=== PATIENT | female | born 1975 | race Caucasian/White ===

== ENCOUNTER 2017-03-19 14:07 | Emergency (ER) | payer BC, OTHER ==
[~2017-03-19] VITALS: Ht 167.6 cm; Wt 69.0 kg
[~2017-03-19 14:07] MED LIST: ATV/1 PO; BUDE180I INH; MULT-506 PO
[2017-03-19 14:11] VITALS: TEMP 36.5; Ht 167.6 cm; Wt 69.0 kg
--- NOTE | 2017-03-19 14:37 | EMERGENCY ROOM VISIT NOTE ---
History Report prepared by Jeri: Teofilo Mead Under the Supervision of: Dr. Charles Sher M.D. First contact with patient: 14:16 Chief Complaint: ANXIETY Stated Complaint: CONFUSION,EXHAUSTION,NAUSEA,ANXIETY,PANIC History of Present Illness The patient is a 41 year old female who presents to the Emergency Room for a mental health evaluation of worsening anxiety. The patient states that she has not been able to sleep well for about 8 days now due to crazy thoughts in her head. The patient states that she is a nervous wreck, exhausted, and she is having panic attacks. She states that she is anxious, and she just lost her job , and there have been deaths in the family. The patient denies any suicidal or homicidal ideations. The patient states that she does not take any medications, and she drinks some alcohol though not recently. She states that she has not been trying to hurt herself or overdosing. She states that she will get 2-4 hours of sleep per night in total because she wakes up panicked, though she is not hearing any voices. The patient's additionally states that the patient has been more confused recently. The additionally states that the patient was recently prescribed Paxil for her anxiety. Source of History: patient, spouse/significant other Onset: 8 days ago Position: other (global) Quality: other (anxiety) Timing: worsening Note: Associated symptoms: exhaustion, confusion Review of Systems See HPI for pertinent positives & negatives. A total of 10 systems reviewed and were otherwise negative. Past Medical & Surgical Surgical Problems: (1) [place] teeth extracted Old medical records were reviewed. Nurse's notes were reviewed and I agree with. Family History Diabetes mellitus FH: heart disease FH: lung disease FHx: cancer Hypertension Social History Smoking Status: Never Smoker Alcohol Use: occasionally Drug Use: none Marital Status: Housing Status: lives with family Current/Historical Medications Scheduled Paroxetine (Paroxetine HCl), 10 MG PO DAILY Allergies Coded Allergies: Cephalexin (Verified Allergy, Unknown, ., 11/02/15) Penicillins (Verified Allergy, Unknown, 11/02/15) Physical Exam Vital Signs Date Time Temp Pulse Resp B/P Pulse Ox O2 Delivery O2 Flow Rate FiO2 03/19/17 16:10 80 18 117/76 99 Room Air 03/19/17 14:11 36.5 76 18 144/90 99 Room Air Physical Exam General: Non-ill appearing middle aged female in no acute distress answering all questions appropriately. HEENT: Normal cephalic atraumatic. Pupils are equal round and reactive to light. Extraocular movements are intact. Oropharynx is pink with moist mucous membranes. No swelling of the mouth lips or tongue. Neck: Supple with a midline trachea. No meningeal signs or stiffness, no JVD or bruits. No Stridor. Chest: Clear to auscultation bilaterally. No wheezes or rhonchi. No increased work of breathing. Heart: regular rate and rhythm. Abdomen: Soft nontender, nondistended without rebound guarding or rigidity. Extremities: No cyanosis clubbing or edema. No calf tenderness or assymetry Spine/Back. Non tender to palpation. No CVA tenderness Skin: Good turgor without rashes. Neurologic exam: Cranial nerves two through 12 are intact. Motor and sensation are intact and symmetrical throughout. Psych: Complains of feeling anxious and not being able to sleep with some manic ideations according to her . No suicidal or homicidal ideations. Medical Decision & Procedures Laboratory Results 03/19/17 14:50 Red Blood Count 4.54, Mean Corpuscular Volume 85.9, Mean Corpuscular Hemoglobin 29.1, Mean Corpuscular Hemoglobin Concent 33.8, Mean Platelet Volume 10.9, Neutrophils (%) (Auto) 83.6, Lymphocytes (%) (Auto) 11.4, Monocytes (%) (Auto) 4.7, Eosinophils (%) (Auto) 0.0, Basophils (%) (Auto) 0.1, Neutrophils # (Auto) 12.11, Lymphocytes # (Auto) 1.66, Monocytes # (Auto) 0.68, Eosinophils # (Auto) 0.00, Basophils # (Auto) 0.02 03/19/17 14:50 Test 03/19/17 14:35 03/19/17 14:50 Urine Opiates Screen NEG (NEG) Urine Methadone, Qualitative NEG (NEG) Urine Barbiturates NEG (NEG) Urine Phencyclidine (PCP) Level NEG (NEG) Ur Amphetamine/Methamphetamine NEG (NEG) MDMA (Ecstasy) Screen NEG (NEG) Urine Benzodiazepines Screen NEG (NEG) Urine Cocaine Metabolite NEG (NEG) Urine Marijuana (THC) NEG (NEG) White Blood Count 14.50 K/uL (4.8-10.8) Red Blood Count 4.54 M/uL (4.2-5.4) Hemoglobin 13.2 g/dL (12.0-16.0) Hematocrit 39.0 % (37-47) Mean Corpuscular Volume 85.9 fL (80-100) Mean Corpuscular Hemoglobin 29.1 pg (25-34) Mean Corpuscular Hemoglobin Concent 33.8 g/dl (32-36) Platelet Count 239 K/uL (130-400) Mean Platelet Volume 10.9 fL (7.4-10.4) Neutrophils (%) (Auto) 83.6 % Lymphocytes (%) (Auto) 11.4 % Monocytes (%) (Auto) 4.7 % Eosinophils (%) (Auto) 0.0 % Basophils (%) (Auto) 0.1 % Neutrophils # (Auto) 12.11 K/uL (1.4-6.5) Lymphocytes # (Auto) 1.66 K/uL (1.2-3.4) Monocytes # (Auto) 0.68 K/uL (0.11-0.59) Eosinophils # (Auto) 0.00 K/uL (0-0.5) Basophils # (Auto) 0.02 K/uL (0-0.2) RDW Standard Deviation 41.2 fL (36.4-46.3) RDW Coefficient of Variation 13.1 % (11.5-14.5) Immature Granulocyte % (Auto) 0.2 % Immature Granulocyte # (Auto) 0.03 K/uL (0.00-0.02) Anion Gap 13.0 mmol/L (3-11) Est Creatinine Clear Calc Drug Dose 80.7 ml/min Estimated GFR () 98.0 Estimated GFR (Non- 84.5 BUN/Creatinine Ratio 6.1 (10-20) Calcium Level 8.9 mg/dl (8.5-10.1) Total Bilirubin 0.5 mg/dl (0.2-1) Direct Bilirubin 0.1 mg/dl (0-0.2) Aspartate Amino Transf (AST/SGOT) 12 U/L (15-37) Alanine Aminotransferase (ALT/SGPT) 17 U/L (12-78) Alkaline Phosphatase 61 U/L (45-117) Total Protein 7.8 gm/dl (6.4-8.2) Albumin 4.3 gm/dl (3.4-5.0) Lipase 84 U/L (73-393) Thyroid Stimulating Hormone (TSH) 0.800 uIu/ml (0.300-4.500) Salicylates Level < 1.7 mg/dl (2.8-20) Acetaminophen Level < 2 ug/ml (10-30) Ethyl Alcohol mg/dL < 3.0 mg/dl (0-3) Laboratory studies as stated above per my review. Medications Administered Medications (Trade) Dose Ordered Sig/Sharmila Route Start Time Stop Time Status Last Admin Dose Admin Hydroxyzine HCl (Vistaril Tab) 25 mg NOW STAT PO 03/19/17 17:47 03/19/17 17:48 DC 03/19/17 18:11 25 MG ECG Indication: other (anxiety) Rate (beats per minute): 86 Rhythm: normal sinus Findings: no acute ischemic change, no ectopy, other (Normal intervals) Comparison ECG Date: 11/12/15 Change: no significant change ED Course 1416: Past medical records reviewed. The patient was evaluated in room A6, and a complete history and physical examination were performed. 1620: I reevaluated the patient, and she is resting comfortably, and she has been medically cleared. The correctional casework specialist is working on a plan 1747: Vistaril Tab 25mg PO 1749: Upon reevaluation, the patient is doing well. I discussed the results and treatment plan with her. She verbalized agreement of the treatment plan. The patient was discharged home. Medical Decision Differentials include, but are not limited to; Manic depression, anxiety, electrolyte or metabolic abnormality, toxicological processes This patient comes in as described above. She was placed in room A6. She is here for treatment and evaluation of anxiety. She's been having manic-like behavior as well . She's not been sleeping for about a week. Her behaviors been somewhat erratic at times. She is cooperative and alert and oriented 3 here. She has a normal neurologic exam. Blood work was obtained for medical clearance as well as urinalysis. She is medically cleared and has nothing to suggest acute toxicologic process or metabolic or infectious process to explain her symptoms. She was further evaluated by Yvrose our psychiatric correctional casework specialist. I think the patient does have some manic behavior. She has been unwilling to take medications for this. She cannot get in the [facility] today and we have no beds here they did not want to go any further away as they have children at home. is going to take her home and try to get her just sleep tonight to see how much this is playing into the equation. She may ultimately need to be admitted and they will likely bring her back tomorrow to see if there may be beds available here and or at the [facility]. I did give her some Vistaril 25mg, # 2 pills, that she can use one every 6 hours if needed. She was warned that it could make her drowsy do not take before drinking, driving, working be careful getting up and down. She is not suicidal or homicidal. Iqra our psychiatric correctional casework specialist will follow-up with her tomorrow as well on the phone and help with placement if needed. Impression Primary Impression: Anxiety Additional Impression: Manic behavior Scribe Attestation The scribe's documentation has been prepared under my direction and personally reviewed by me in its entirety. I confirm that the note above accurately reflects all work, treatment, procedures, and medical decision making performed by me. Departure Information Dispostion Home / Self-Care Referrals Malathi Brambila M.D. (PCP) Forms HOME CARE DOCUMENTATION FORM, IMPORTANT VISIT INFORMATION Patient Instructions My [facility] Additional Instructions Rest. Drink plenty of fluids. For sleep, may try Vistaril 25 mg every 6 hours, and may make you drowsy do not take with any other medications that are sedating Return if: Worsening symptoms, thoughts of hurting himself or others, any new problems or concerns Follow-up with your doctor tomorrow for recheck or return here at any point if symptoms worsen Problem Qualifiers
[2017-03-19 14:58] LABS: BASO % 0.1 %; BASO ABS # 0.02 K/uL (0-0.2); COMPLETE YES; IG% 0.2 %; LYMPH % 11.4 %; LYMPH ABS # 1.66 K/uL (1.2-3.4); MEAN CELL VOLUME 85.9 fL (80-100); MEAN CORPUSCULAR HEMOGLOBIN 29.1 pg (25-34); MEAN CORPUSCULAR HGB CONC 33.8 g/dl (32-36); MEAN PLATELET VOLUME 10.9 fL (7.4-10.4); MONO % 4.7 %; NEUT % 83.6 %; PLATELET COUNT 239 K/uL (130-400); RED BLOOD COUNT 4.54 M/uL (4.2-5.4)
[2017-03-19 15:12] LABS: BENZODIAZEPINE, URINE NEG (NEG); COCAINE,URINE NEG (NEG); PHENCYCLIDINE, URINE NEG (NEG)
[2017-03-19] MEDS ORDERED: PXL/10 PO (15:15)
[2017-03-19 15:19] LABS: BUN/CREATININE RATIO 6.1 (10-20); CALCIUM 8.9 mg/dl (8.5-10.1); CREATININE 0.85 mg/dl (0.60-1.20); POTASSIUM 3.6 mmol/L (3.5-5.1)
[2017-03-19 15:30] LABS: THYROID STIMULATING HORMONE 0.8 uIu/ml (0.300-4.500)
[2017-03-19 15:45] LABS: ACETAMINOPHEN < 2 ug/ml (10-30)
[2017-03-19] MEDS ORDERED: hydrOXYzine HCL 25 MG TAB PO STA (17:47)
[2017-03-19 18:15] VITALS: BP 131/87; PULSE 73; O2SAT 100
== END 2017-03-19 18:15 | disposition home or self-care (01) ==
LOC: C.EDB 14:08 → C.EDA 18:15
DX: F41.9 Anxiety disorder, unspecified (principal); F30.9 Manic episode, unspecified; Z79.899 Other long term (current) drug therapy; Z88.0 Allergy status to penicillin; Z88.1 Allergy status to other antibiotic agents; Z83.3 Family history of diabetes mellitus; Z82.49 Family history of ischemic heart disease and other diseases of the circulatory system; Z80.9 Family history of malignant neoplasm, unspecified

== ENCOUNTER 2017-03-20 12:47 | Inpatient (IN) | payer BC ==
[~2017-03-20] VITALS: Ht 167.6 cm; Wt 68.0 kg
[~2017-03-20 12:47] MED LIST changes: -ATV/1 PO; -BUDE180I INH; -MULT-506 PO; +PXL/10 PO
[2017-03-20 14:17] LABS: URINE APPEARANCE CLEAR (CLEAR); URINE BILIRUBIN NEG (NEG); URINE COLOR YELLOW; URINE NITRITE NEG (NEG); URINE PH 6.5 (4.5-7.5); URINE SPECIFIC GRAVITY 1.012 (1.000-1.030); UROBILINOGEN NEG (NEG); ZZUR CULT IF INDIC CLEAN CATCH NO
[2017-03-20 14:20] LABS: PREG INTERNAL NEGATIVE QC NEG CLEAR BACKGROUND; PREG INTERNAL POSITIVE QC POS CONTROL LINE
[2017-03-20 14:25] LABS: MANUAL MICROSCOPIC REQUIRED? NO; REVIEW REQ? NO
--- NOTE | 2017-03-20 14:47 | EMERGENCY ROOM VISIT NOTE ---
History Report prepared by Jeri: Karey Aguayo Under the Supervision of: Dr. Yoav Flanagan D.O. First contact with patient: 13:52 Chief Complaint: ANXIETY Stated Complaint: ANXIETY History of Present Illness The patient is a 41 year old female who presents to the Emergency Room with complaints of persistent anxiety starting 1 week ago. The patient was seen in the ED yesterday for anxiety due to losing her job and deaths in the family. She denied any SI or HI yesterday. She denied trying to hurt herself or overdosing. She has been getting 2-4 hours of sleep a night. She denied any auditory or visual hallucinations. She was recently started on Paxil for anxiety and was given Vistaril yesterday while she was here. An attempt was made to get her into the [facility] which was unsuccessful. There were no beds here and she did not want to go any further away because of her kids. The plan was for her to come back today for a bed search. Today she reports that she has been confused and having trouble remembering things. She states she is easily overwhelmed and having racing thoughts. She currently denies any SI or HI. She was able to get 6 hours of sleep last night with the Vistaril. Her notes that she is not herself. She is often found staring into space. She has been stopping mid conversation or going from topic to topic. She has been accusing her family of trying to prank her. She admits to feeling hypersexual. She has a history of anxiety. She is still agreeable to inpatient care. She denies any other medical problems. Pt denies headache, change in vision, fevers , chest pain, shortness of breath, nausea, vomiting, diarrhea, pain with urination, weakness, and numbness. Source of History: patient, family Onset: 1 week ago Position: other (mental health) Quality: other (anxiety) Timing: other (persistent) Associated Symptoms: No SOB, No chest pain, No diarrhea, No fevers, No headache, No nausea, No numbness, No urinary symptoms, No vomiting, No weakness Note: Pt denies change in vision. Review of Systems See HPI for pertinent positives & negatives. A total of 10 systems reviewed and were otherwise negative. Past Medical & Surgical Medical Problems: (1) Psychosis Surgical Problems: (1) [place] teeth extracted Family History Diabetes mellitus FH: heart disease FH: lung disease FHx: cancer Hypertension Social History Smoking Status: Never Smoker Alcohol Use: occasionally Drug Use: none Marital Status: Housing Status: lives with family Allergies Coded Allergies: Cephalexin (Verified Allergy, Unknown, ., 11/02/15) Penicillins (Verified Allergy, Unknown, 11/02/15) Physical Exam Vital Signs Date Time Temp Pulse Resp B/P Pulse Ox O2 Delivery O2 Flow Rate FiO2 03/20/17 14:53 72 18 110/72 97 Room Air 03/20/17 12:57 36.6 75 18 140/89 97 Room Air Physical Exam GENERAL: sitting up in bed, disheveled, no acute distress, non-toxic EYE EXAM: normal conjunctiva, PERRL and EOM's intact OROPHARYNX: no exudate, no erythema, lips, buccal mucosa, and tongue normal and mucous membranes are moist NECK: supple, no nuchal rigidity, no adenopathy, non-tender LUNGS: Clear to auscultation. Normal chest wall mechanics HEART: no murmurs, S1 normal and S2 normal ABDOMEN: abdomen soft, non-tender, normo-active bowel sounds, no masses, no rebound or guarding. BACK: Back is symmetrical on inspection and there is no deformity, no midline tenderness, no CVA tenderness. SKIN: no rashes and no bruising UPPER EXTREMITIES: upper extremities are grossly normal. LOWER EXTREMITIES: No pitting edema. NEURO EXAM: Normal sensorium, cranial nerves II-XII intact, normal speech, no weakness of arms, no weakness of legs. No drift. Finger to nose intact. Gross sensation intact. PSYCH: Denies SI or HI, denies auditory or visual hallucination, admits to depression and feeling hypersexual. Medical Decision & Procedures Laboratory Results 03/20/17 14:40 Red Blood Count 4.48, Mean Corpuscular Volume 87.3, Mean Corpuscular Hemoglobin 28.6, Mean Corpuscular Hemoglobin Concent 32.7, Mean Platelet Volume 11.0, Neutrophils (%) (Auto) 76.6, Lymphocytes (%) (Auto) 16.6, Monocytes (%) (Auto) 6.3, Eosinophils (%) (Auto) 0.1, Basophils (%) (Auto) 0.2, Neutrophils # (Auto) 7.94, Lymphocytes # (Auto) 1.72, Monocytes # (Auto) 0.65, Eosinophils # (Auto) 0.01, Basophils # (Auto) 0.02 03/20/17 14:40 Test 03/20/17 13:24 03/20/17 14:40 Urine Color YELLOW Urine Appearance CLEAR (CLEAR) Urine pH 6.5 (4.5-7.5) Urine Specific Raymond 1.012 (1.000-1.030) Urine Protein NEG (NEG) Urine Glucose (UA) NEG (NEG) Urine Ketones 1+ (NEG) Urine Occult Blood NEG (NEG) Urine Nitrite NEG (NEG) Urine Bilirubin NEG (NEG) Urine Urobilinogen NEG (NEG) Urine Leukocyte Esterase NEG (NEG) Urine Test NEG (NEG) Urine Opiates Screen NEG (NEG) Urine Methadone, Qualitative NEG (NEG) Urine Barbiturates NEG (NEG) Urine Phencyclidine (PCP) Level NEG (NEG) Ur Amphetamine/Methamphetamine NEG (NEG) MDMA (Ecstasy) Screen NEG (NEG) Urine Benzodiazepines Screen NEG (NEG) Urine Cocaine Metabolite NEG (NEG) Urine Marijuana (THC) NEG (NEG) White Blood Count 10.36 K/uL (4.8-10.8) Red Blood Count 4.48 M/uL (4.2-5.4) Hemoglobin 12.8 g/dL (12.0-16.0) Hematocrit 39.1 % (37-47) Mean Corpuscular Volume 87.3 fL (80-100) Mean Corpuscular Hemoglobin 28.6 pg (25-34) Mean Corpuscular Hemoglobin Concent 32.7 g/dl (32-36) Platelet Count 212 K/uL (130-400) Mean Platelet Volume 11.0 fL (7.4-10.4) Neutrophils (%) (Auto) 76.6 % Lymphocytes (%) (Auto) 16.6 % Monocytes (%) (Auto) 6.3 % Eosinophils (%) (Auto) 0.1 % Basophils (%) (Auto) 0.2 % Neutrophils # (Auto) 7.94 K/uL (1.4-6.5) Lymphocytes # (Auto) 1.72 K/uL (1.2-3.4) Monocytes # (Auto) 0.65 K/uL (0.11-0.59) Eosinophils # (Auto) 0.01 K/uL (0-0.5) Basophils # (Auto) 0.02 K/uL (0-0.2) RDW Standard Deviation 43.0 fL (36.4-46.3) RDW Coefficient of Variation 13.4 % (11.5-14.5) Immature Granulocyte % (Auto) 0.2 % Immature Granulocyte # (Auto) 0.02 K/uL (0.00-0.02) Anion Gap 7.0 mmol/L (3-11) Est Creatinine Clear Calc Drug Dose 80.7 ml/min Estimated GFR () 98.0 Estimated GFR (Non- 84.5 BUN/Creatinine Ratio 8.1 (10-20) Calcium Level 8.9 mg/dl (8.5-10.1) Total Bilirubin 0.4 mg/dl (0.2-1) Direct Bilirubin 0.1 mg/dl (0-0.2) Aspartate Amino Transf (AST/SGOT) 15 U/L (15-37) Alanine Aminotransferase (ALT/SGPT) 17 U/L (12-78) Alkaline Phosphatase 53 U/L (45-117) Total Protein 7.3 gm/dl (6.4-8.2) Albumin 4.0 gm/dl (3.4-5.0) Salicylates Level < 1.7 mg/dl (2.8-20) Acetaminophen Level < 2 ug/ml (10-30) Ethyl Alcohol mg/dL < 3.0 mg/dl (0-3) Laboratory results per my review. ED Course ED COURSE: Vital signs were reviewed and showed normal vitals. The patients medical record was reviewed The above diagnostic studies were performed and reviewed. ED treatments and interventions as stated above. 1401: The patient was evaluated in room A7. A complete history and physical examination was performed. 1625: Upon reevaluation, the patient is resting comfortably.I discussed my findings with the patient and she understands and agrees with the treatment plan. Based on the patients age, coexisting illnesses, exam and lab findings the decision to treat as an inpatient was made. The patient remained stable while under my care. The patient will be evaluated for further management. The patient has been accepted to [address] [place] [address]. Medical Decision Differential diagnoses includes but is not limited to mood disorder, infection, hypoglycemia, electrolyte abnormalities, cardiac sources, intracerebral event, toxicologic, neurologic, as well as others were entertained. Patient is a 41-year-old female who presents to the ER who appears to be manic with racing thoughts, having difficulty sleeping and hypersexual. She was brought in by her yesterday and they had no beds at [facility] or [facility] and consequently requested to be discharged. She was given some Vistaril and was able to sleep but her symptoms are still present. They have all been present for the past week. She has not been able to hold her job and consequently was fired a week ago. CBC along with BP, LFTs, bilirubin are all negative. Tox was negative. TSH was negative yesterday. Alcohol negative today. 3 S. was consulted for further evaluation and patient was admitted. Impression Primary Impression: Mood disorder of manic type Scribe Attestation The scribe's documentation has been prepared under my direction and personally reviewed by me in its entirety. I confirm that the note above accurately reflects all work, treatment, procedures, and medical decision making performed by me. Departure Information Dispostion Mental Health Acute Care Referrals Malathi Brambila M.D. (PCP) Patient Instructions My [facility]
[2017-03-20 14:55] LABS: BASO % 0.2 %; BASO ABS # 0.02 K/uL (0-0.2); COMPLETE YES; EOS % 0.1 %; HEMATOCRIT 39.1 % (37-47); IG% 0.2 %; LYMPH % 16.6 %; LYMPH ABS # 1.72 K/uL (1.2-3.4); MEAN CELL VOLUME 87.3 fL (80-100); MEAN CORPUSCULAR HEMOGLOBIN 28.6 pg (25-34); MEAN CORPUSCULAR HGB CONC 32.7 g/dl (32-36); MONO % 6.3 %; NEUT % 76.6 %; PLATELET COUNT 212 K/uL (130-400); RED BLOOD COUNT 4.48 M/uL (4.2-5.4); WHITE BLOOD COUNT 10.36 K/uL (4.8-10.8)
[2017-03-20 15:12] LABS: CALCIUM 8.9 mg/dl (8.5-10.1)
[2017-03-20 15:17] LABS: BUN/CREATININE RATIO 8.1 (10-20); CREATININE 0.85 mg/dl (0.60-1.20); POTASSIUM 3.9 mmol/L (3.5-5.1)
[2017-03-20 15:19] LABS: BENZODIAZEPINE, URINE NEG (NEG); COCAINE,URINE NEG (NEG); PHENCYCLIDINE, URINE NEG (NEG)
[2017-03-20 15:30] LABS: ACETAMINOPHEN < 2 ug/ml (10-30)
[2017-03-20] MEDS ORDERED: hydrOXYzine HCL 25 MG TAB PO PRN (16:15)
[2017-03-20] MEDS ORDERED: HALOPERIDOL 5 MG TAB PO PRN (16:15)
[2017-03-20] MEDS ORDERED: MAGNESIUM HYDROXIDE SUSP 30 ML UDC PO PRN (16:15)
[2017-03-20] MEDS ORDERED: SODIUM CHLORIDE 0.65% NA SOLN 45 ML (OCEAN) PRN (16:15)
[2017-03-20] MEDS ORDERED: ALUMINUM/MAGNESIUM SUSP 30 ML UDC PO PRN (16:15)
[2017-03-20] MEDS ORDERED: BISMUTH SUBSALICYLATE PER ML OMNICELL CHARGE PO PRN (16:15)
[2017-03-20] MEDS ORDERED: ACETAMINOPHEN 325 MG TAB PO PRN (16:15)
[2017-03-20 16:41] VITALS: O2SAT 97
[2017-03-20 18:53] VITALS: BP 126/83; PULSE 77; TEMP 36.6; Ht 167.6 cm; Wt 68.0 kg
[2017-03-21] MEDS: hydrOXYzine HCL 25 MG TAB PO PRN ×2 (01:52→18:47)
[2017-03-21 07:04] VITALS: BP_SYST 130; BP_SYST 133; BP_DIAS 83; PULSE 77; PULSE 83; TEMP 36.8
[2017-03-21] MEDS ORDERED: RISPERIDONE ODT 0.5MG PO PRN (10:15)
--- NOTE | 2017-03-21 10:45 | Psychiatric History & Physical ---
History Date of Service March 21, 2017. Identifying Data Nicolasa Pedroza is a 41-year-old female who presented to the ER for the second day in a row with complaints of anxiety, confused thinking and paranoia. She was admitted on a 201 voluntary commitment but immediately submitted her 72 hour notice to withdraw from treatment. Chief Complaint "I've had a lot of stressful events". History of Present Illness Nicolasa Pedroza is a 41-year-old woman with no past psych history other than having had some counseling, who reports that over the course of the last week and a half or more, she is having difficulty with her thinking and had what she describes as a "breakdown. He talks about having multiple stressors including the fact that she lost her job at the [employer] sometime in January because she is not doing a good job. She has also had several deaths in the family. She indicates that she is having "trouble with my " and tells a somewhat vague story about having been flirtatious with a man through texts in the past and having emotional affairs but not physical affairs and that somehow these issues resurfaced recently. Medically, she reports that she has a basal cell carcinoma on her nose and is scheduled for removal on March 29. She is also having a lot of fearful thoughts that she is dying but says she has received no information that she has a disease process going on. She admits that she takes on other people's problems and takes them to extremes. She indicates, for example, that she has a cousin who is a drug addict and has recently then been thinking that maybe she is a drug addict or that maybe her daughter is a drug addict. This leads her to thoughts that she might have multiple personality disorders because she is unable to control her thinking. She also says that her sleep has been impaired and based on these things was brought to the emergency room 2 days ago by her . At that time, she had agreed to go to [facility], there were no beds available and so they sent her home with Vistaril in hopes that she would sleep and get some control of her symptoms. She re-presented yesterday acknowledging that she needed inpatient treatment. She agreed to a voluntary admission but quickly signed her 72 hour notice. She was paranoid at one point that her and the analog design engineer drawing her blood were working together to have her scanned for specific substances. Today the patient says that her mood has been "somber" and finds that she does not have the affect she once had. She denies ever having had suicidal thoughts. She reports impaired sleep going on for the last week and a half, able to follow sleep but very quickly waking up and then getting only 4-6 hours of broken sleep per night where she would normally get 8 hours. Her appetite is been down and she thinks she may have lost a few pounds. Her energy is down but in the same breath says that she has been having more goals and activation, talking about looking for a job, exercising and wanting to take a class. She reports poor focus and concentration. She indicates that she is unable to finish one thought at a time and feels like her thoughts are bombarding her. She denies any clear auditory or visual hallucinations, however does say that things on the television seemed familiar to her, related to her, and references [place]. When asked about thought broadcasting she initially says yes but then is unable to clearly give an example or answer the question. She denies problems with anger. She says that she has been highly anxious and has been having panic attacks, usually triggered by fears of or fears of losing another loved one. Her grandmother recently . She denies self-injurious behaviors. She denies symptoms of OCD. She denies discrete episodes of euphoric mood, sleeplessness or pleasure seeking behaviors that would be congruent with a bipolar disorder. Past Psychiatric History Access to a Gun: No Past Medical/Surgical History History of Concussion/Seizure: No (1) History of rheumatic fever Allergies Allergies: Coded Allergies: Cephalexin (Verified Allergy, Unknown, ., 11/02/15) Penicillins (Verified Allergy, Unknown, 11/02/15) Family History Diabetes mellitus FH: heart disease FH: lung disease FHx: cancer Hypertension History of Suicide: No History of Substance Abuse: Yes (cousin) Psychiatric History: Yes (mother, brother, sister with anxiety) Alcohol Use Alcohol Use In Past 12 Months: Yes AUDIT Total Score: 0 Drinks alcohol occasionally, usually one or 2 glasses of wine 2-3 days per week Smoking Use Smoking Status: Never Smoker Substance History Denies the use of illegal substances now or at any time in the past Personal History Lives in: [employer] with her and twin son and daughter Childhood: Grew up locally, graduated from [employer] Education: graduated college (bachelors degree in human development and family services) Work History: 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 Previously worked for [employer] Relationship History: (17 years) Children: twin 13-year-old son and daughter Spiritual Affiliation: Caodaism Legal History: none Psychological Trauma History: Other (denies) Review of Systems Constitutional: other (insomnia) Eyes: denies: as stated in HPI, blurred vision, discharge, double vision, eye pain, itching, no symptoms, other, photophobia, redness, tearing, visual changes ENT: reports: other (dry mouth making it difficult to swallow at times) Cardiovascular: denies: chest pain, chest pressure, chest tightness, diaphoresis, no symptoms reported, other, palpitations, see HPI, syncope Respiratory: denies: JUAN, PND, cough, cyanosis, no symptoms reported, orthopnea , other, see HPI, short of breath, sputum production, stridor, wheezing Gastrointestinal: denies no symptoms reported, denies see HPI, denies abdominal pain, denies constipation, denies diarrhea, denies nausea, denies vomiting, denies other Genitourinary - Female: denies: amenorrhea, dysmenorrhea, menorrhagia, metrorrhagia, no symptoms, other, , rash, see HPI, vaginal bleeding, vaginal discharge, vaginal itching, vulvadynia Musculoskeletal: denies no symptoms reported, denies see HPI, denies back pain , denies gout, denies joint pain, denies joint swelling, denies muscle pain, denies muscle stiffness, denies neck pain, denies other Integumentary: denies no symptoms reported, denies see HPI, denies change in color, denies change in hair/nails, denies dryness, denies lesions, denies lumps , denies rash, denies other Neurologic: denies: dizziness, focal weakness, general weakness, headache, lethargy, memory loss, no symptoms, numbness, other, paresthesias, pre-existing deficit, see HPI, seizure, tics, tingling, tremors, vertigo Endocrine: denies: as stated in HPI, cold intolerance, goiter, hair changes, heat intolerance, no symptoms, other, polydipsia, polyuria, skin changes Hematologic / Lymphatic: denies: abnormal clotting, adenopathy, anemia, as stated in HPI, easy bleeding, easy bruising, gums bleeding, no symptoms, other, petechiae Examination Physical Examination Exam performed by Dr. Sher has been reviewed and accepted as medical clearance for our unit Vital Signs Vital Signs Past 12 Hours Date Time Temp Pulse Resp B/P Pulse Ox O2 Delivery O2 Flow Rate FiO2 03/21/17 07:04 36.8 77 16 133/83 83 130/83 Laboratory Results Last 24 Hours Test 03/20/17 13:24 03/20/17 14:40 Urine Color YELLOW Urine Appearance CLEAR Urine pH 6.5 Urine Specific [place] 1.012 Urine Protein NEG Urine Glucose (UA) NEG Urine Ketones 1+ Urine Occult Blood NEG Urine Nitrite NEG Urine Bilirubin NEG Urine Urobilinogen NEG Urine Leukocyte Esterase NEG Urine Test NEG Urine Opiates Screen NEG Urine Methadone, Qualitative NEG Urine Barbiturates NEG Urine Phencyclidine (PCP) Level NEG Ur Amphetamine/Methamphetamine NEG MDMA (Ecstasy) Screen NEG Urine Benzodiazepines Screen NEG Urine Cocaine Metabolite NEG Urine Marijuana (THC) NEG White Blood Count 10.36 K/uL Red Blood Count 4.48 M/uL Hemoglobin 12.8 g/dL Hematocrit 39.1 % Mean Corpuscular Volume 87.3 fL Mean Corpuscular Hemoglobin 28.6 pg Mean Corpuscular Hemoglobin Concent 32.7 g/dl Platelet Count 212 K/uL Mean Platelet Volume 11.0 fL Neutrophils (%) (Auto) 76.6 % Lymphocytes (%) (Auto) 16.6 % Monocytes (%) (Auto) 6.3 % Eosinophils (%) (Auto) 0.1 % Basophils (%) (Auto) 0.2 % Neutrophils # (Auto) 7.94 K/uL Lymphocytes # (Auto) 1.72 K/uL Monocytes # (Auto) 0.65 K/uL Eosinophils # (Auto) 0.01 K/uL Basophils # (Auto) 0.02 K/uL RDW Standard Deviation 43.0 fL RDW Coefficient of Variation 13.4 % Immature Granulocyte % (Auto) 0.2 % Immature Granulocyte # (Auto) 0.02 K/uL Sodium Level 138 mmol/L Potassium Level 3.9 mmol/L Chloride Level 103 mmol/L Carbon Dioxide Level 28 mmol/L Anion Gap 7.0 mmol/L Blood Urea Nitrogen 7 mg/dl Creatinine 0.85 mg/dl Est Creatinine Clear Calc Drug Dose 80.7 ml/min Estimated GFR () 98.0 Estimated GFR (Non- 84.5 BUN/Creatinine Ratio 8.1 Random Glucose 87 mg/dl Calcium Level 8.9 mg/dl Total Bilirubin 0.4 mg/dl Direct Bilirubin 0.1 mg/dl Aspartate Amino Transf (AST/SGOT) 15 U/L Alanine Aminotransferase (ALT/SGPT) 17 U/L Alkaline Phosphatase 53 U/L Total Protein 7.3 gm/dl Albumin 4.0 gm/dl Salicylates Level < 1.7 mg/dl Acetaminophen Level < 2 ug/ml Ethyl Alcohol mg/dL < 3.0 mg/dl Mental Examination During interview pt is: alert and oriented, guarded Appearance: appropriately dressed, appropriately groomed Eye contact is: good Motor behavior is: steady gait & station, no abnormal motor movements Speech: normal in rate, rhythm & volume Affect: flat, anxious Mood is: anxious, other ("somber") Thought process: other (vague and at times disconnected) Thought content: paranoid (that others are conspiratorial) Suicidal thought are: denied Homicidal thoughts are: denied Hallucinations: denies auditory, denies visual Cognition: memory grossly intact, attention grossly intact, language grossly intact Intelligence estimated to be: average Insight: impaired Judgement: impaired Impression / Recommendations Impression 41-year-old woman who is admitted to our unit voluntarily with anxiety, delusions of paranoia. She reports this is been coming on for a week and a half although stressors date back to January. She presented to the ER 2 days in a row. Unfortunately, after arriving on the unit, her paranoia escalated and she submitted a 72 hour notice to withdraw from treatment. Today she remains paranoid and I have discussed a treatment plan that includes using Risperdal to treat her thought distortions. She is unable to focus on this clearly, saying she doesn't want to get addicted and then saying she doesn't think that she needs those medicines. We have an extensive conversation about half-lives and the purpose and mechanism of medications. I will order the medications and have the nurses take to her. If she refuses the medications, we will need to meet with her to see if he has any information that would make her committable as she has submitted a 72 hour notice as well. I will also order Risperdal 0.5 mg every 4 hours when necessary in the event she chooses to take something for her distorted thoughts. She will need psychiatric aftercare. At this time she requires inpatient mental health treatment due to the severity of her paranoia, and apparent inability to function or distinguish reality as an outpatient. Inventory Assets Strengths: Good support from family, love of her children Risk Factors Assessment : Yes /single/: No Higher / Fall in social status: No Access to guns: No Health problems: No Mental Health Diagnoses: No Substance use disorders: No Previous attempt: No Previous psychiatric stay: No Hopelessness: No Smoker: No Protective Factors Assessment Zoroastrian beliefs: Yes : Yes Responsible for young children: Yes Employed: No Stable relationships: Yes Supportive family: Yes Recommendations (1) Unspecified psychosis 03/21 -Start Risperdal 1 mg twice a day and 0.5 mg every 4 hours when necessary psychosis. -Obtain supplemental information from including any potential 302 criteria -The patient will need psychiatric aftercare -The patient has submitted a 72 hour notice. We will continue to gather information toward the need for further inpatient care -Encourage attendance in group and individual counseling -Every 15 minute checks for safety -Reality orientation -The patient is asking for copies of all of her releases and her medical records. This is not deemed to be appropriate at this time -When necessary Vistaril for anxiety and sleep Has been reviewed with Dr. Clau Manley CPT Code Initial Hospital Care: 61707
[2017-03-21] MEDS ORDERED: RISPERIDONE ODT 1MG PO ONE (11:00)
[2017-03-21] MEDS: RISPERIDONE ODT 1MG PO SCH ×2 (13:10→21:11)
[2017-03-21] MEDS: LORAZEPAM 1 MG TAB PO PRN (23:02)
[2017-03-22] MEDS: RISPERIDONE ODT 1MG PO SCH (06:40)
[2017-03-22 07:06] VITALS: BP_SYST 120; BP_SYST 129; BP_DIAS 76; BP_DIAS 87; PULSE 134; PULSE 142; TEMP 36.5
[2017-03-22] MEDS: LORAZEPAM 1 MG TAB PO PRN (07:21)
[2017-03-22] MEDS ORDERED: LORAZEPAM 0.5 MG TAB PO PRN (10:45)
--- NOTE | 2017-03-22 11:01 | Psychiatric Progress Notes ---
Progress Note Date of Service March 22, 2017. Interval History 41 yo female admitted voluntarily on 03/21 with paranoia and distorted thoughts, occurring in the context of having lost her job, newly diagnoses BCC on her nose and some marital distress. Chief Complaint "I'm tired. ". Subjective Patient was seen & assessed interval progress reviewed with Treatment Team. The patient is quite tired today and was awakened from sleep for the interview. She admits that she was hesitant to take the meds but with 's encouragement, she has taken all doses. She also has taken 2 doses of ativan for sleep and anxiety. She says that she cannot tell at this time whether it has changed her thinking in any way because she is too tired. She does ask if the information I put in the computer is accessible by everyone (meaning staff) as if paranoid. I discuss with her the plan to readjust her meds to reduce daytime sedation, and also encouraged her to use the prn rispderdal as opposed to ativan if she is distressed. She denies other side effects to meds. Pulse taken during the interview, 84 irregular Review of Systems Constitutional: + fatigue ENT: No dental problems, No hearing loss, No nasal symptoms, No problem reported, No sore throat, No tinnitus, No trouble swallowing, No unusual epistaxis Respiratory: No cough, No dyspnea at rest, No dyspnea on exertion, No hemoptysis, No problem reported, No shortness of breath, No sputum, No wheezing Cardiovascular: No PND, No chest pain, No claudication, No edema, No orthopnea , No palpitations, No problem reported Abdomen: No GI bleeding, No constipation, No diarrhea, No nausea, No pain, No problem reported, No vomiting Musculoskeletal: No calf pain, No joint pain, No muscle pain, No problem reported, No swelling Neurologic: No balance problems, No memory loss, No numbness/tingling, No paralysis, No problem reported, No vertigo, No weakness Psychiatric: + problem reported (paranoid ideation) Integumentary: No bleeding, No color change, No itch, No new/changing skin lesions, No problem reported, No rash Sleep Information Total Hours of Sleep: 8.50 Meal Information Percent of Breakfast Consumed: 100 Percent of Dinner Consumed: 75 Mental Status Exam During interview pt is: cooperative (but tired and struggling to stay awake), guarded Appearance: appropriately dressed, appropriately groomed Eye contact is: good Motor behavior is: steady gait & station, no abnormal motor movements Speech: normal in rate, rhythm & volume Affect: flat (tired), anxious Mood is: anxious Thought process: goal directed (but tired and unable to reflect her thoughts) Thought content: paranoid (that others are conspiratorial) Suicidal thought are: denied Homicidal thoughts are: denied Hallucinations: denies auditory, denies visual Cognition: memory grossly intact, attention grossly intact, language grossly intact Intelligence estimated to be: average Insight: impaired Judgement: impaired Impression Appears sedated on meds today, but taking meds as prescribed. Is unable to to fatigue, to assess the impact of meds to her thinking, but asked what sounded like a paranoid question during the interview about the computers. Will adjust risperdal to 0.5 mg. AM and 1.5 mg HS and cut prn ativan in half. Will encourage nursing to utilize risperdal prn rather than ativan since we are targeting psychosis. 72 hr notice remains, and will on 03/23 at 1750. Social service will contact today re: whether he has any evidence for a 302, as she will not likely meet criteria based on our information. Will continue to encourage to revoke, and remain for further treatment. Plan (1) Unspecified psychosis 03/21 -Start Risperdal 1 mg twice a day and 0.5 mg every 4 hours when necessary psychosis. -Obtain supplemental information from including any potential 302 criteria -The patient will need psychiatric aftercare -The patient has submitted a 72 hour notice. We will continue to gather information toward the need for further inpatient care -Encourage attendance in group and individual counseling -Every 15 minute checks for safety -Reality orientation -The patient is asking for copies of all of her releases and her medical records. This is not deemed to be appropriate at this time -When necessary Vistaril for anxiety and sleep 03/22 - Change risperdal to 0.5 mg. AM and 1.5 mg HS due to daytime sedation - Family meeting held with yesterday - Reduce prn ativan to 0.5 mg. and encourage staff to use risperdal prn first - Continue to gather information toward the need for further inpatient treatment. Discharge / Aftercare Planning Primary Care Physician: Name: Mayra Carroll Therapist: Name: clover Customer Experience Strategist: Name: clover Visit Code E&M Code: 52859 Inventory Assets Strengths: Good support from family, love of her children Risk Factors Assessment : Yes /single/: No Higher / Fall in social status: No Health problems: No Mental Health Diagnoses: No Substance use disorders: No Previous attempt: No Previous psychiatric stay: No Hopelessness: No Smoker: No Protective Factors Assessment Baptism beliefs: Yes : Yes Responsible for young children: Yes Employed: No Stable relationships: Yes Supportive family: Yes Data Vital Signs Last 24 Hrs: Date Time Temp Pulse Resp B/P Pulse Ox O2 Delivery O2 Flow Rate FiO2 03/22/17 07:06 36.5 142 16 129/76 134 120/87 Meds Administered Last 24 Hrs: Meds Administered (Past 24Hrs) Medications (Trade) Dose Ordered Sig/Sharmila Route Start Time Stop Time Status Last Admin Dose Admin Hydroxyzine HCl (Vistaril Tab) 50 mg HSZ PRN PO 03/20/17 16:15 04/19/17 16:14 03/21/17 21:11 50 MG Hydroxyzine HCl (Vistaril Tab) 25 mg Q4H PRN PO 03/20/17 16:15 04/19/17 16:14 03/21/17 18:47 25 MG Risperidone (Risperdal M Tab) 1 mg BID PO 03/21/17 22:00 04/20/17 21:59 03/22/17 06:40 1 MG Lorazepam (Ativan Tab) 1 mg Q4H PRN PO 03/21/17 10:15 04/20/17 10:14 03/22/17 07:21 1 MG Lab Results Last 24 Hrs: 03/20/17 14:40 Red Blood Count 4.48, Mean Corpuscular Volume 87.3, Mean Corpuscular Hemoglobin 28.6, Mean Corpuscular Hemoglobin Concent 32.7, Mean Platelet Volume 11.0, Neutrophils (%) (Auto) 76.6, Lymphocytes (%) (Auto) 16.6, Monocytes (%) (Auto) 6.3, Eosinophils (%) (Auto) 0.1, Basophils (%) (Auto) 0.2, Neutrophils # (Auto) 7.94, Lymphocytes # (Auto) 1.72, Monocytes # (Auto) 0.65, Eosinophils # (Auto) 0.01, Basophils # (Auto) 0.02 03/20/17 14:40 Test 03/20/17 13:24 03/20/17 14:40 Urine Color YELLOW Urine Appearance CLEAR (CLEAR) Urine pH 6.5 (4.5-7.5) Urine Specific [place] 1.012 (1.000-1.030) Urine Protein NEG (NEG) Urine Glucose (UA) NEG (NEG) Urine Ketones 1+ (NEG) Urine Occult Blood NEG (NEG) Urine Nitrite NEG (NEG) Urine Bilirubin NEG (NEG) Urine Urobilinogen NEG (NEG) Urine Leukocyte Esterase NEG (NEG) Urine Test NEG (NEG) Urine Opiates Screen NEG (NEG) Urine Methadone, Qualitative NEG (NEG) Urine Barbiturates NEG (NEG) Urine Phencyclidine (PCP) Level NEG (NEG) Ur Amphetamine/Methamphetamine NEG (NEG) MDMA (Ecstasy) Screen NEG (NEG) Urine Benzodiazepines Screen NEG (NEG) Urine Cocaine Metabolite NEG (NEG) Urine Marijuana (THC) NEG (NEG) White Blood Count 10.36 K/uL (4.8-10.8) Red Blood Count 4.48 M/uL (4.2-5.4) Hemoglobin 12.8 g/dL (12.0-16.0) Hematocrit 39.1 % (37-47) Mean Corpuscular Volume 87.3 fL (80-100) Mean Corpuscular Hemoglobin 28.6 pg (25-34) Mean Corpuscular Hemoglobin Concent 32.7 g/dl (32-36) Platelet Count 212 K/uL (130-400) Mean Platelet Volume 11.0 fL (7.4-10.4) Neutrophils (%) (Auto) 76.6 % Lymphocytes (%) (Auto) 16.6 % Monocytes (%) (Auto) 6.3 % Eosinophils (%) (Auto) 0.1 % Basophils (%) (Auto) 0.2 % Neutrophils # (Auto) 7.94 K/uL (1.4-6.5) Lymphocytes # (Auto) 1.72 K/uL (1.2-3.4) Monocytes # (Auto) 0.65 K/uL (0.11-0.59) Eosinophils # (Auto) 0.01 K/uL (0-0.5) Basophils # (Auto) 0.02 K/uL (0-0.2) RDW Standard Deviation 43.0 fL (36.4-46.3) RDW Coefficient of Variation 13.4 % (11.5-14.5) Immature Granulocyte % (Auto) 0.2 % Immature Granulocyte # (Auto) 0.02 K/uL (0.00-0.02) Anion Gap 7.0 mmol/L (3-11) Est Creatinine Clear Calc Drug Dose 80.7 ml/min Estimated GFR () 98.0 Estimated GFR (Non- 84.5 BUN/Creatinine Ratio 8.1 (10-20) Calcium Level 8.9 mg/dl (8.5-10.1) Total Bilirubin 0.4 mg/dl (0.2-1) Direct Bilirubin 0.1 mg/dl (0-0.2) Aspartate Amino Transf (AST/SGOT) 15 U/L (15-37) Alanine Aminotransferase (ALT/SGPT) 17 U/L (12-78) Alkaline Phosphatase 53 U/L (45-117) Total Protein 7.3 gm/dl (6.4-8.2) Albumin 4.0 gm/dl (3.4-5.0) Salicylates Level < 1.7 mg/dl (2.8-20) Acetaminophen Level < 2 ug/ml (10-30) Ethyl Alcohol mg/dL < 3.0 mg/dl (0-3)
[2017-03-22] MEDS ORDERED: RISPERIDONE ODT 0.5MG PO SCH (22:00)
[2017-03-23 07:04] VITALS: BP_SYST 109; BP_SYST 111; BP_DIAS 72; BP_DIAS 79; PULSE 125; PULSE 93; TEMP 36.6
[2017-03-23 07:27] VITALS: PULSE 132
[2017-03-23] MEDS ORDERED: RISPERIDONE ODT 0.5MG PO SCH (09:00)
[2017-03-23 09:11] VITALS: BP 125/80; PULSE 116
--- NOTE | 2017-03-23 09:31 | Discharge Instructions ---
Discharge Information Report Includes Report will include the: Discharge Instructions & Summary Admission Admission Date / Time: March 20, 2017 at 16:02 Reason for Admission: Psychosis Discharge Discharge Diagnosis / Problem: Unspecified psychosis Condition at Discharge: Fair Discharge Goals Goal(s): Decrease discomfort, Improve disease control, Prevent Disease Progression Activity Recommendations Activity Limitations: as noted below (Do not drive or operate machinery if feeling sedated) . Instructions / Follow-Up Instructions / Follow-Up . SPECIAL CARE INSTRUCTIONS: 1. Follow through with your scheduled aftercare appointments. If unable to keep an appointment, please call to reschedule. 2. Take your medication only as prescribed. Medication should not be changed or stopped without the approval of your doctor. In the event of worsening symptoms or concerns about side effects, contact your doctor immediately. 3. Utilize new healthy coping skills, anger management skills, and stress management skills learned during your hospitalization. Journal feelings and process them with a support person. Identify stressors or situations that may result in relapse, deterioration or inappropriate behaviors and develop a plan to deal with those issues. 4. If your coping skills are ineffective and you are in crisis, contact your outpatient providers for direction. If unable to reach your providers, please call the CAN HELP LINE AT or go to the closest Emergency Room. 5. Avoid alcohol and un-prescribed drugs. 6. You have been provided with the Mental Health Advance Directives Pamphlet for your review. AFTERCARE APPOINTMENTS: * Please call your insurance company prior to your scheduled appointment to confirm your aftercare providers are covered. Take your insurance information to your appointments. . Discharge / Aftercare Planning Primary Care Physician: Name: Mayra Carroll Phone Number: [phone] Appointment Notes: as needed Psychiatrist: Name: Dr Stas Dale Phone Number: [phone] Date of Appointment: Apr 13, 2017 Time of Appointment: 10:30 Therapist: Name Of Therapist: [email or web address] Phone Number: [phone] Home Fire Alarm Installer: Name: clover . Follow-Up Care Plan for Follow-Up Care: She will see Dr. Mcclelland on April 13 and is already established with a therapist. Current Hospital Diet Patient's current hospital diet: Regular Diet Discharge Diet Recommended Diet: Regular Diet Procedures Procedures Performed: No Pending Studies Pending Studies at Discharge: No Medical Emergencies . Who to Call and When: Medical Emergencies: For questions or emergencies related to your hospital stay, please contact the Inpatient Behavioral Health Unit at [phone]. A motor vehicle operator road supervisor is on-call 22/05 for the Behavioral Health Unit for emergencies At any time you feel your situation is an emergency, you may also call 911 immediately. . Non-Emergent Contact Non-Emergency issues call your: Psychiatrist, Therapist Advance Directives Existing Advance Directive: No Do You Have an Existing Mental: No Existing Living Will: No Existing Power of General Operations Manager: No Advance Directives Info Given: To Pt/S.O. Advance Directives Reason: Declines as Mental Health Visit. Discharge Summary Admission HPI Per the Admitting provider: Nicolasa Pedroza is a 41-year-old woman with no past psych history other than having had some counseling, who reports that over the course of the last week and a half or more, she is having difficulty with her thinking and had what she describes as a "breakdown. He talks about having multiple stressors including the fact that she lost her job at the [employer] sometime in January because she is not doing a good job. She has also had several deaths in the family. She indicates that she is having "trouble with my " and tells a somewhat vague story about having been flirtatious with a man through texts in the past and having emotional affairs but not physical affairs and that somehow these issues resurfaced recently. Medically, she reports that she has a basal cell carcinoma on her nose and is scheduled for removal on March 29. She is also having a lot of fearful thoughts that she is dying but says she has received no information that she has a disease process going on. She admits that she takes on other people's problems and takes them to extremes. She indicates, for example, that she has a cousin who is a drug addict and has recently then been thinking that maybe she is a drug addict or that maybe her daughter is a drug addict. This leads her to thoughts that she might have multiple personality disorders because she is unable to control her thinking. She also says that her sleep has been impaired and based on these things was brought to the emergency room 2 days ago by her . At that time, she had agreed to go to [facility], there were no beds available and so they sent her home with Vistaril in hopes that she would sleep and get some control of her symptoms. She re-presented yesterday acknowledging that she needed inpatient treatment. She agreed to a voluntary admission but quickly signed her 72 hour notice. She was paranoid at one point that her and the clinical research associate drawing her blood were working together to have her scanned for specific substances. Today the patient says that her mood has been "somber" and finds that she does not have the affect she once had. She denies ever having had suicidal thoughts. She reports impaired sleep going on for the last week and a half, able to follow sleep but very quickly waking up and then getting only 4-6 hours of broken sleep per night where she would normally get 8 hours. Her appetite is been down and she thinks she may have lost a few pounds. Her energy is down but in the same breath says that she has been having more goals and activation, talking about looking for a job, exercising and wanting to take a class. She reports poor focus and concentration. She indicates that she is unable to finish one thought at a time and feels like her thoughts are bombarding her. She denies any clear auditory or visual hallucinations, however does say that things on the television seemed familiar to her, related to her, and references [place]. When asked about thought broadcasting she initially says yes but then is unable to clearly give an example or answer the question. She denies problems with anger. She says that she has been highly anxious and has been having panic attacks, usually triggered by fears of or fears of losing another loved one. Her grandmother recently . She denies self-injurious behaviors. She denies symptoms of OCD. She denies discrete episodes of euphoric mood, sleeplessness or pleasure seeking behaviors that would be congruent with a bipolar disorder. Hospital Course (1) Unspecified psychosis 03/21 -Start Risperdal 1 mg twice a day and 0.5 mg every 4 hours when necessary psychosis. -Obtain supplemental information from including any potential 302 criteria -The patient will need psychiatric aftercare -The patient has submitted a 72 hour notice. We will continue to gather information toward the need for further inpatient care -Encourage attendance in group and individual counseling -Every 15 minute checks for safety -Reality orientation -The patient is asking for copies of all of her releases and her medical records. This is not deemed to be appropriate at this time -When necessary Vistaril for anxiety and sleep 03/22 - Change risperdal to 0.5 mg. AM and 1.5 mg HS due to daytime sedation - Family meeting held with yesterday - Reduce prn ativan to 0.5 mg. and encourage staff to use risperdal prn first - Continue to gather information toward the need for further inpatient treatment. Risk Factors Assessment : Yes /single/: No Higher / Fall in social status: No Health problems: No Mental Health Diagnoses: No Substance use disorders: No Previous attempt: No Previous psychiatric stay: No Hopelessness: No Smoker: No Protective Factors Assessment Orthodox beliefs: Yes : Yes Responsible for young children: Yes Employed: No Stable relationships: Yes Supportive family: Yes Day of Discharge Assessment COURSE OF HOSPITALIZATION: The patient was admitted because of paranoia and psychotic symptoms. There was initial consideration for a bipolar manic episode , however she appeared more psychotic and without evidence to support bipolar diagnosis. She had thoughts that others were conspiratorial toward her, and had been incorporating other people's problems into her life. She was started on Risperdal 0.5 mg a.m. and 1.5 mg at bedtime which was helpful for sleep, which she was struggling with prior to admission, and organize her thinking. Over her short 3 day stay, she said that she no longer had those same distorted thoughts although was overly focused on details, treatment, following the schedule even right up until the day of discharge. Her was involved in her treatment, attended a family meeting. He felt that she was very very close to baseline and felt comfortable with her coming home. She had submitted a 72 hour notice to withdraw from treatment very shortly after arriving on the unit. There did not appear to be any clear criteria to commit her on a 302 and keep her against her will. She did have problems with tachycardia during her stay and we are awaiting the results of an EKG at this moment. Follow-up will be decided after we review results. She otherwise attended most groups with good participation, was in good behavioral control throughout. DAY OF DISCHARGE ASSESSMENT: Today the patient is requesting discharge and her 72 hour notice expires this evening. She is not sedated today, saying that she feels "great", denying dizziness. She remained somewhat tachycardic, 100 bpm and irregularly irregular at the time of my visit. EKG will be obtained. She has no history of cardiac conditions. She says that her distorted thoughts are better and she is okay taking medicines for the rest of her life if that's what' s required in order to state normal. She never wants to feel as she did at the time of admission again. Today she is casually and appropriately dressed and groomed. Gait and station are within normal limits. Eye contact is good. Speech is of normal rate volume and tone. Affect is restricted but able to smile. Thoughts are organized, goal-directed, and without overt evidence of thought disorder. Recent and remote memory are intact per conversation. Intelligence is estimated to be average. Insight and judgment are improved over admission. Laboratory Test 03/20/17 13:24 03/20/17 14:40 03/23/17 07:00 Urine Color YELLOW Urine Appearance CLEAR Urine pH 6.5 Urine Specific [place] 1.012 Urine Protein NEG Urine Glucose (UA) NEG Urine Ketones 1+ Urine Occult Blood NEG Urine Nitrite NEG Urine Bilirubin NEG Urine Urobilinogen NEG Urine Leukocyte Esterase NEG Urine Test NEG Urine Synthetic Stimulants Pending Urine Opiates Screen NEG Urine Methadone, Qualitative NEG Urine Barbiturates NEG Urine Phencyclidine (PCP) Level NEG Ur Amphetamine/Methamphetamine NEG MDMA (Ecstasy) Screen NEG Urine Benzodiazepines Screen NEG Urine Cocaine Metabolite NEG Cannabinoids Comment Pending Urine Synthetic Cannabinoids Pending Ur Synthetic Cannabinoids Confirm Pending Urine Marijuana (THC) NEG White Blood Count 10.36 Red Blood Count 4.48 Hemoglobin 12.8 Hematocrit 39.1 Mean Corpuscular Volume 87.3 Mean Corpuscular Hemoglobin 28.6 Mean Corpuscular Hemoglobin Concent 32.7 Platelet Count 212 Mean Platelet Volume 11.0 Neutrophils (%) (Auto) 76.6 Lymphocytes (%) (Auto) 16.6 Monocytes (%) (Auto) 6.3 Eosinophils (%) (Auto) 0.1 Basophils (%) (Auto) 0.2 Neutrophils # (Auto) 7.94 Lymphocytes # (Auto) 1.72 Monocytes # (Auto) 0.65 Eosinophils # (Auto) 0.01 Basophils # (Auto) 0.02 RDW Standard Deviation 43.0 RDW Coefficient of Variation 13.4 Immature Granulocyte % (Auto) 0.2 Immature Granulocyte # (Auto) 0.02 Sodium Level 138 Potassium Level 3.9 Chloride Level 103 Carbon Dioxide Level 28 Anion Gap 7.0 Blood Urea Nitrogen 7 Creatinine 0.85 Est Creatinine Clear Calc Drug Dose 80.7 Estimated GFR () 98.0 Estimated GFR (Non- 84.5 BUN/Creatinine Ratio 8.1 Random Glucose 87 Calcium Level 8.9 Total Bilirubin 0.4 Direct Bilirubin 0.1 Aspartate Amino Transferase (AST) 15 Alanine Aminotransferase (ALT) 17 Alkaline Phosphatase 53 Total Protein 7.3 Albumin 4.0 Salicylates Level < 1.7 Acetaminophen Level < 2 Ethyl Alcohol mg/dL < 3.0 Fasting Glucose 94 Triglycerides Level 71 Cholesterol Level 141 HDL Cholesterol 70 LDL Cholesterol, Calculated 57 VLDL Cholesterol, Calculated 14 Cholesterol/HDL Ratio 2.0 Total Time Total Time Spent (min): Greater than 30 minutes Total Time Included: examination of the patient, discharge planning, medication reconciliation, communication with other providers Tobacco Cessation at Discharge Smoking Status: Never Smoker FDA approved Prescription: non-smoker
[2017-03-23] MEDS ORDERED: RISP1TAB18 PO (12:00)
[2017-03-23] MEDS ORDERED: RISP1TAB68 PO (14:09)
[2017-03-24 13:40] LABS: SYNTHETIC CANNABINOIDS QL URIN NEGATIVE (Negative)
== END 2017-03-23 14:35 | disposition home or self-care (01) | DRG 885 ==
LOC: C.EDB 12:50 → C.MHU 16:02
PROVIDERS: ADMIT Psychiatry & Neurology Psychiatry; ATTEND Psychiatry & Neurology Psychiatry
DX: F29 Unspecified psychosis not due to a substance or known physiological condition (principal); C44.311 Basal cell carcinoma of skin of nose; Z86.79 Personal history of other diseases of the circulatory system; Z83.3 Family history of diabetes mellitus; Z82.49 Family history of ischemic heart disease and other diseases of the circulatory system; Z81.8 Family history of other mental and behavioral disorders; Z81.4 Family history of other substance abuse and dependence

== ENCOUNTER 2018-01-27 13:12 | Emergency (ER) | payer BC, OTHER ==
[~2018-01-27] VITALS: Ht 167.6 cm; Wt 66.6 kg
[2018-01-27 13:15] VITALS: TEMP 36.5; Ht 167.6 cm; Wt 66.6 kg
--- NOTE | 2018-01-27 14:28 | DIAGNOSTIC IMAGING REPORT ---
CT SCAN OF THE BRAIN WITHOUT IV CONTRAST CLINICAL HISTORY: Change in mental status. COMPARISON STUDY: No priors. TECHNIQUE: Unenhanced axial CT scan of the brain is performed from the vertex to the skull base. A dose lowering technique was utilized adhering to the principles of ALARA. CT DOSE: 537.48 mGy.cm FINDINGS: Brain parenchyma: The brain parenchyma is normal in appearance. There is no hemorrhage, mass effect, or evidence of acute territorial ischemia by CT criteria. [place]-white matter is preserved. No extra-axial fluid collection is seen. Ventricles, sulci, cisterns: Normal in configuration. Intracranial vasculature: The visualized intracranial vasculature at the skull base is normal in appearance. Calvarium: Unremarkable. Sinuses and mastoids: The visualized paranasal sinuses are clear. The mastoid air cells are well pneumatized. Orbits: The bony orbits are grossly intact. IMPRESSION: No acute intracranial abnormality. Electronically signed by: Jb Parikh M.D. 01/27/2018 2:26 PM Dictated Date/Time: 01/27/2018 2:24 PM
[2018-01-27 14:48] LABS: HEMOGLOBIN 12.9 g/dL (12.0-16.0); MEAN CORPUSCULAR HEMOGLOBIN 29.2 pg (25-34); MEAN CORPUSCULAR HGB CONC 33.9 g/dl (32-36); MEAN PLATELET VOLUME 10.3 fL (7.4-10.4); PLATELET COUNT 210 K/uL (130-400); RED CELL DISTRIBUTION WIDTH SD 44.1 fL (36.4-46.3); WHITE BLOOD COUNT 8.23 K/uL (4.8-10.8)
[2018-01-27 15:08] LABS: ALT/SGPT 23 U/L (12-78); BLOOD UREA NITROGEN 13 mg/dl (7-18); CALCIUM 8.9 mg/dl (8.5-10.1); CARBON DIOXIDE 28 mmol/L (21-32); CREATININE 1.02 mg/dl (0.60-1.20); GLUCOSE 85 mg/dl (70-99); POTASSIUM 3.8 mmol/L (3.5-5.1); SODIUM 136 mmol/L (136-145)
[2018-01-27] MEDS ORDERED: MULT-506 PO (15:09)
[2018-01-27] MEDS ORDERED: IBUP-103 PO (15:09)
[2018-01-27] MEDS ORDERED: LAMO25TA PO (15:09)
[2018-01-27 15:19] LABS: ALKALINE PHOSPHATASE 73 U/L (45-117); AST/SGOT 21 U/L (15-37)
--- NOTE | 2018-01-27 18:10 | EMERGENCY ROOM VISIT NOTE ---
History Report prepared by Jeri: Kameron Chopra Under the Supervision of: Dr. Vipul Gauthier M.D. First contact with patient: 13:36 Chief Complaint: MENTAL HEALTH EVALUATION Stated Complaint: UPSET STOMACH,CRAZY THOUGHTS,FLUTTERING HEART Nursing Triage Summary: pt reports feels dizzy headache was on zoloft stopped taking it History of Present Illness The patient is a 42 year old female who presents to the Emergency Room for a mental health evaluation. The patient is accompanied by her who states that the patient was admitted in February for mood disorder. He reports that her doctor also believed that she has been bipolar and started her on Zoloft. Her states that within the last two weeks the patient switched medications to Lamictal 25 mg. He states that the patient was then increased to 50 mg two days ago. The patient's states that the patient has constantly not been herself for the last couple of weeks. He states that the patient has been saying things that have never happened such as him going to [place] when he never did. Her reports that patient is also irrational thinking she is . He states that she believes she is with twins when she has had difficulty with getting in the past. Her states that the patient bought tests. The patient states that she is seeing things that other people are not seeing. She reports that she does not recognize her and believes he is someone else. The patient states that this makes her distressed. She reports that she has also been hearing voices such as "tiptoes in the attic", but denies that these voices are telling her to do things. The patient's states that the patient has not been getting sleep even though she believes she is. He also reports the patient has been extremely sexual recently. The patient states she has been experiencing racing thoughts. Her reports that the patient has also been believing she can do things she usually cannot, such as singing. Her reports that the patient usually does not become depressive, but reports she has been more depressed recently. The patient's states that the patient's symptoms are similar to when she was admitted in February. She reports that she is currently lightheaded and nauseous. The patient denies having a CT done, headaches, numbness or weakness on one side of body, slurred speech, difficulty with ambulation, chest pain, shortness of breath, fever, vomiting, abdominal pain, urinary symptoms, suicidal or homicidal ideations, and drug usage. She reports she drinks alcohol occasionally. Source of History: patient, spouse/significant other Onset: a couple of weeks ago Position: other (global) Timing: constant Modifying Factors (Relieving): other (Lamictal) Associated Symptoms: + nausea, No fevers, No headache, No chest pain, No SOB , No vomiting, No abdominal pain, No urinary symptoms, No weakness, No numbness Note: Associated symptoms: lack of sleep, racing thoughts, hearing voices, visual hallucinations, increased sexual activity, depressed. Review of Systems See HPI for pertinent positives & negatives. A total of 10 systems reviewed and were otherwise negative. Past Medical & Surgical Medical Problems: (1) History of rheumatic fever (2) Psychosis Surgical Problems: (1) [place] teeth extracted Family History Diabetes mellitus FH: heart disease FH: lung disease FHx: cancer Hypertension Social History Smoking Status: Never Smoker Alcohol Use: occasionally Drug Use: none Marital Status: Housing Status: lives with family Current/Historical Medications Scheduled Lamotrigine (Lamictal), 50 MG PO QAM Multivitamin (Multivitamin), 1 TAB PO DAILY Scheduled PRN Ibuprofen Tab (Advil), 200-600 MG PO Q4H PRN for Pain Allergies Coded Allergies: Cephalexin (Verified Allergy, Unknown, ., 01/27/18) Penicillins (Verified Allergy, Unknown, 01/27/18) Physical Exam Vital Signs Date Time Temp Pulse Resp B/P (MAP) Pulse Ox O2 Delivery O2 Flow Rate FiO2 01/27/18 16:17 72 18 123/89 100 Room Air 01/27/18 14:51 76 18 120/85 98 Room Air 01/27/18 13:15 36.5 83 18 133/90 99 Room Air Physical Exam Constitutional: Vital signs reviewed. Eyes: Pupils are equal round reactive to light. Conjunctiva are noninjected. ENT: Pharynx is clear without erythema or exudate. Mucous membranes are moist. Neck supple without meningeal signs. Respiratory: Clear to auscultation bilaterally. Breath sounds are equal bilaterally. Cardiovascular: Regular rate and rhythm. No rubs or gallops. GI: Soft, nondistended and nontender. Bowel sounds are present. Musculoskeletal: No peripheral edema. Integumentary: No cyanosis. Neurological: The patient is awake and alert. Cranial nerves II-XII are intact. Motor is 5 out of 5 all extremities. Sensation is intact to light touch all extremities. Normal speech. No pronator drift. Psychiatric: Guarded affect. Medical Decision & Procedures ER Provider Diagnostic Interpretation: Radiology results as stated below per my review and the radiologist's interpretation: CT SCAN OF THE BRAIN WITHOUT IV CONTRAST CLINICAL HISTORY: Change in mental status. COMPARISON STUDY: No priors. TECHNIQUE: Unenhanced axial CT scan of the brain is performed from the vertex to the skull base. A dose lowering technique was utilized adhering to the principles of ALARA. CT DOSE: 537.48 mGy.cm FINDINGS: Brain parenchyma: The brain parenchyma is normal in appearance. There is no hemorrhage, mass effect, or evidence of acute territorial ischemia by CT criteria. [place]-white matter is preserved. No extra-axial fluid collection is seen. Ventricles, sulci, cisterns: Normal in configuration. Intracranial vasculature: The visualized intracranial vasculature at the skull base is normal in appearance. Calvarium: Unremarkable. Sinuses and mastoids: The visualized paranasal sinuses are clear. The mastoid air cells are well pneumatized. Orbits: The bony orbits are grossly intact. IMPRESSION: No acute intracranial abnormality. Electronically signed by: Jb Parikh M.D. 01/27/2018 2:26 PM Dictated Date/Time: 01/27/2018 2:24 PM Laboratory Results 01/27/18 14:33 01/27/18 14:33 Test 01/27/18 13:36 01/27/18 14:33 Urine Color YELLOW Urine Appearance CLEAR (CLEAR) Urine pH 6.0 (4.5-7.5) Urine Specific [place] 1.010 (1.000-1.030) Urine Protein NEG (NEG) Urine Glucose (UA) NEG (NEG) Urine Ketones NEG (NEG) Urine Occult Blood NEG (NEG) Urine Nitrite NEG (NEG) Urine Bilirubin NEG (NEG) Urine Urobilinogen NEG (NEG) Urine Leukocyte Esterase SMALL (NEG) Urine WBC (Auto) 1-5 /hpf (0-5) Urine RBC (Auto) 0-4 /hpf (0-4) Urine Hyaline Casts (Auto) 0 /lpf (0-5) Urine Epithelial Cells (Auto) 10-20 /lpf (0-5) Urine Bacteria (Auto) NEG (NEG) Urine Test NEG (NEG) Urine Opiates Screen NEG (NEG) Urine Methadone, Qualitative NEG (NEG) Urine Barbiturates NEG (NEG) Urine Phencyclidine (PCP) Level NEG (NEG) Ur Amphetamine/Methamphetamine NEG (NEG) MDMA (Ecstasy) Screen NEG (NEG) Urine Benzodiazepines Screen NEG (NEG) Urine Cocaine Metabolite NEG (NEG) Urine Marijuana (THC) NEG (NEG) Red Blood Count 4.42 M/uL (4.2-5.4) Mean Corpuscular Volume 86.0 fL (80-100) Mean Corpuscular Hemoglobin 29.2 pg (25-34) Mean Corpuscular Hemoglobin Concent 33.9 g/dl (32-36) RDW Standard Deviation 44.1 fL (36.4-46.3) RDW Coefficient of Variation 14.0 % (11.5-14.5) Mean Platelet Volume 10.3 fL (7.4-10.4) Anion Gap 5.0 mmol/L (3-11) Est Creatinine Clear Calc Drug Dose 66.5 ml/min Estimated GFR () 78.0 Estimated GFR (Non- 67.3 BUN/Creatinine Ratio 13.0 (10-20) Calcium Level 8.9 mg/dl (8.5-10.1) Total Bilirubin 0.2 mg/dl (0.2-1) Direct Bilirubin < 0.1 mg/dl (0-0.2) Aspartate Amino Transf (AST/SGOT) 21 U/L (15-37) Alanine Aminotransferase (ALT/SGPT) 23 U/L (12-78) Alkaline Phosphatase 73 U/L (45-117) Total Protein 8.0 gm/dl (6.4-8.2) Albumin 4.0 gm/dl (3.4-5.0) Thyroid Stimulating Hormone (TSH) 1.300 uIu/ml (0.300-4.500) Salicylates Level < 1.7 mg/dl (2.8-20) Acetaminophen Level < 2 ug/ml (10-30) Ethyl Alcohol mg/dL < 3.0 mg/dl (0-3) Laboratory results as reviewed by me. ED Course 1343: The patient was evaluated in room A07. A complete history and physical exam was performed. 1526: I reevaluated the patient and talked to her and her about her test results. She is waiting for formal mental health evaluation. 1628: I reevaluated the patient and we talked about outpatient treatment. She reports he would like to stay inpatient. The case picker will call. 1800: The patient is signed out to Dr. Arizmendi at the change of shift. Medical Decision This is a 42-year-old female who presents for mental health evaluation. I did perform a limited focused review of portions of the patient's old chart on the electronic medical record. The patient was admitted for mood disorder on February. I did evaluate the patient as noted above. I did obtain history from the patient as well as her . She is presenting with auditory and visual hallucinations. She has had disorganized thoughts. They state her symptoms are similar to when she was admitted back in February of last year. They state that when this occurred last year her primary care physician offered to do imaging of her head to look for an organic cause of her symptoms. At that time they declined. Currently they are agreeable to a CT scan. I did order and personally review the patient's urinalysis as described above. I did order and review the patient's blood work as noted in the electronic medical record. I did order a CT of the head. I did review the images myself as well as the radiology report as described above. There is no evidence of acute intracranial process. I did medically clear the patient. The patient wants to be admitted as an inpatient for psychiatric care and medication adjustments. Bed search is currently underway by the mental health case picker. I did sign the patient out to Dr. Arizmendi. Medication Reconcilliation Current Medication List: was personally reviewed by me Blood Pressure Screening Patient's blood pressure: Elevated blood pressure Blood pressure disposition: Elevated BP felt to be situational Impression Primary Impression: Thought disorder Scribe Attestation The scribe's documentation has been prepared under my direct and personally reviewed by me in its entirety. I confirm that the note above accurately reflects all work, treatment, procedures, and medical decision making performed by me. Departure Information Dispostion Still a Patient Referrals Malathi Brambila M.D. (PCP) Patient Instructions My [facility]
--- NOTE | 2018-01-27 20:07 | EMERGENCY ROOM VISIT NOTE ---
ED Visit Note First contact with patient: 18:01 I assumed care at the change of shift, Dr. Gauthier had been the physician just prior to me. The patient was undergoing a bed search for voluntary psychiatric placement. [facility] did accept the patient. They asked that an EKG be done. The EKG shows a normal sinus rhythm with a rate of 74. There is no acute ischemia, no dysrhythmia, no ectopy. The patient is being transferred to [facility]. I did fill out the paperwork for the transfer. The patient has been cooperative and stable during the time she has been under my care.
[2018-01-27 20:56] VITALS: BP 115/82; PULSE 71; O2SAT 100
== END 2018-01-27 20:56 | disposition short-term general hospital (02) ==
LOC: C.EDB 13:14 → C.EDA 20:56
DX: F22 Delusional disorders (principal); Z79.899 Other long term (current) drug therapy; Z88.0 Allergy status to penicillin; Z88.1 Allergy status to other antibiotic agents; Z82.49 Family history of ischemic heart disease and other diseases of the circulatory system; Z83.3 Family history of diabetes mellitus; Z83.6 Family history of other diseases of the respiratory system